=== PATIENT | female | born 1970 ===

== ENCOUNTER 2021-04-14 07:34 | Day surgery (SDC) | payer OTHER ==
[~2021-04-14 07:34] MED LIST: DAILY VALUE1 EACH PO
[2021-04-14] MEDS ORDERED: METHYLERGO0.2 MG/11 PO (11:13)
== END 2021-04-14 16:35 | disposition home or self-care (01) ==
LOC: CIR.AMB 07:34
PROVIDERS: ATTEND Obstetrics & Gynecology
DX: N84.1 Polyp of cervix uteri (principal); N84.0 Polyp of corpus uteri; N72 Inflammatory disease of cervix uteri; Z20.822 Contact with and (suspected) exposure to COVID-19